=== PATIENT | male | born 1990 | race Caucasian/White ===

== ENCOUNTER 2017-01-20 01:59 | Emergency (ER) | payer OTHER ==
[2017-01-20 02:09] VITALS: BP 112/64; PULSE 89; RESP 16; TEMP 98.9; O2SAT 99
--- NOTE | 2017-01-20 02:42 | ED PDOC ---
HPI: Psych/Substance Abuse Time Seen by Provider: 01/20/17 02:26 Chief Complaint (Nursing): Alcohol Ingestion Chief Complaint (Provider): alcohol ingestion History Per: Patient (26 y/o male brought by EMS for evaluation. Patient is intoxicated and noted to burn eggs he was trying to cook. Denies any complaints.) Past Medical History Reviewed: Historical Data, Nursing Documentation, Vital Signs Vital Signs: Last Vital Signs Temp 98.9 F 01/20/17 02:04 Pulse 89 01/20/17 02:04 Resp 16 01/20/17 02:04 BP 112/64 01/20/17 02:04 Pulse Ox 99 01/20/17 02:04 - Family History Family History: States: No Known Family Hx - Allergies Allergies/Adverse Reactions: Allergies Allergy/AdvReac Type Severity Reaction Status Date / Time No Known Allergies Allergy Verified 01/20/17 02:09 Review of Systems ROS Statement: Except As Marked, All Systems Reviewed And Found Negative Physical Exam - Reviewed Nursing Documentation Reviewed: Yes Vital Signs Reviewed: Yes - Physical Exam Appears: Positive for: Well, Non-toxic, No Acute Distress Head Exam: Positive for: ATRAUMATIC, NORMAL INSPECTION, NORMOCEPHALIC Skin: Positive for: Normal Color, Warm, DRY Eye Exam: Positive for: EOMI, Normal appearance, PERRL ENT: Positive for: Normal ENT Inspection Neck: Positive for: Normal, Painless ROM Cardiovascular/Chest: Positive for: Regular Rate, Rhythm Respiratory: Positive for: CNT, Normal Breath Sounds Gastrointestinal/Abdominal: Positive for: Normal Exam, Bowel Sounds, Soft Back: Positive for: Normal Inspection Extremity: Positive for: Normal ROM Neurologic/Psych: Positive for: Alert, Oriented - ECG O2 Sat by Pulse Oximetry: 99 - Progress ED Course And Treament: observed in ED without any respiratory distress. Improved sobriety noted. Patient with steady gait. Disposition - Clinical Impression Clinical Impression: Alcohol ingestion - Patient ED Disposition Is Patient to be Admitted: No - Disposition Disposition: Routine/Home Disposition Time: 05:41 Condition: FAIR Instructions: Alcohol Intoxication (ED), Smoke Inhalation (ED) Forms: Berggi (Setswana)
== END 2017-01-20 06:26 | disposition home or self-care (01) ==
LOC: H.ER 01:59
DX: F10.10 Alcohol abuse, uncomplicated (principal)